=== PATIENT | female | born 1990 | race African-American/Black ===

== ENCOUNTER 2020-06-19 20:27 | Inpatient (IN) | payer OTHER ==
[2020-06-19] MEDS ORDERED: Nalbuphine 10 MG/1 ML Vial IVPUSH PRN (20:42)
[2020-06-19] MEDS ORDERED: Water For Irrigation,Sterile 1,000 ML Container IRR PRN (20:42)
[2020-06-19] MEDS ORDERED: Ondansetron 4 MG/2 ML SDV IVPUSH PRN (20:42)
[2020-06-19] MEDS ORDERED: Misoprostol 200 MCG Tab PO PRN (20:42)
[2020-06-19] MEDS ORDERED: Tranexamic Acid 1,000 MG in Sodium Chloride 0.9% 100 ML IV PRN (20:42)
[2020-06-19] MEDS ORDERED: Methylergonovine 0.2 MG/1 ML Amp IM PRN (20:42)
[2020-06-19] MEDS ORDERED: Sodium Chloride 0.9% 10 ML SDV IV PRN (20:42)
[2020-06-19] MEDS ORDERED: Misoprostol 25 MCG (1/4 of 100 MCG) Tab VAG PRN ×2 (20:42)
[2020-06-19] MEDS ORDERED: Carboprost Tromethamine 250 MCG/1 ML Amp IM PRN (20:42)
[2020-06-19] MEDS ORDERED: Lidocaine 1% 50 ML MDV INJECT PRN (20:42)
[2020-06-19] MEDS ORDERED: Butorphanol 1 MG/ML SDV IVPUSH PRN (20:42)
[2020-06-19] MEDS ORDERED: Terbutaline 1 MG/ML SDV SUBCUT PRN (20:42)
[2020-06-19] MEDS ORDERED: Sodium Chloride 0.9% 2.5 ML Syringe FLUSH PRN (20:42)
[2020-06-19] MEDS ORDERED: Sodium Chloride 0.9% 10 ML Syringe FLUSH PRN (20:42)
[2020-06-19] MEDS ORDERED: Oxytocin/0.9 % Sodium Chloride 30 UNIT/500 ML BAG IV SCH ×2 (20:45)
[2020-06-20] MEDS: Lactated Ringers 1,000 ML IV SCH ×3 (08:30→10:16)
[2020-06-20] MEDS ORDERED: fentaNYL 100 MCG/2 ML SDV ONE (08:58)
[2020-06-20] MEDS ORDERED: Ropivacaine HCl/PF 100 ML ONE (08:58)
--- NOTE | 2020-06-20 09:07 | PCM.PREANE ---
Preanesthetic Assessment - Procedure Proposed Procedure: Continuous labor epidural for active labor. - Anesthesia/Transfusion/Family Hx Anesthesia History: Prior Anesthesia Without Reaction (Previous epidural, hernia repair, both without anesthesia complications) Family History of Anesthesia Reaction: No Transfusion History: No Prior Transfusion(s) Additional History: Gestational diabetes and gestational HTN with this . Both well- controlled. - Review of Systems General: No Symptoms Pulmonary: No Symptoms Cardiovascular: No Symptoms Gastrointestinal: No Symptoms Neurological: No Symptoms Other: Reports: None - Physical Assessment NPO Status Date: 06/19/20 (NPO for food since yest., clear liquids okay.) NPO Status Time: 18:00 Height: 1.6 m Weight: 92.986 kg ASA Class: 2 Mental Status: Alert & Oriented x3 Airway Class: Mallampati = 3 Dentition: Reports: Normal Dentition Thyro-Mental Finger Breadths: 4 Mouth Opening Finger Breadths: 3 ROM/Head Extension: Full Lungs: Normal Respiratory Effort Cardiovascular: Regular Rate, Regular Rhythm - Lab Values: Laboratory Last Values WBC 10.35 K/uL (4.0-11.0) 06/19/20 20:55 RBC 4.25 M/uL (4.30-5.90) L 06/19/20 20:55 Hgb 11.4 g/dL (12.0-16.0) L 06/19/20 20:55 Hct 34.7 % (36.0-46.0) L 06/19/20 20:55 MCV 81.6 fL (80.0-98.0) 06/19/20 20:55 MCH 26.8 pg (27.0-32.0) L 06/19/20 20:55 MCHC 32.9 g/dL (31.0-37.0) 06/19/20 20:55 RDW Std Deviation 47.5 fl (28.0-62.0) 06/19/20 20:55 RDW Coeff of Roberto Carlos 16 % (11.0-15.0) H 06/19/20 20:55 Plt Count 283 K/uL (150-400) 06/19/20 20:55 MPV 10.80 fL (7.40-12.00) 06/19/20 20:55 Nucleated RBC % 0.0 /100WBC 06/19/20 20:55 Nucleated RBCs # 0 K/uL 06/19/20 20:55 POC Glucose 88 mg/dL (70-99) 06/20/20 05:33 Blood Type O POSITIVE 06/19/20 20:55 Antibody Screen NEGATIVE 06/19/20 20:55 - Allergies Allergies/Adverse Reactions: Allergies Allergy/AdvReac Type Severity Reaction Status Date / Time No Known Allergies Allergy Verified 06/20/20 08:40 - Acknowledgements Anesthesia Type Planned: Epidural Pt an Appropriate Candidate for the Planned Anesthesia: Yes Alternatives and Risks of Anesthesia Discussed w Pt/Guardian: Yes Pt/Guardian Understands and Agrees with Anesthesia Plan: Yes Additional Comments: Discussed epidural risks, benefits, procedure, and alternatives with patient (S.O. bedside). All questions answered and concerns addressed. Consent signed with RN witness. PreAnesthesia Questionnaire HEENT History: Reports: None QUALITY ASSURANCE LAB TECHNICIAN History: Reports: , Spontaneous Endocrine/Metabolic History: Reports: Diabetes, Gestational Dermatologic History: Reports: Eczema - Past Surgical History GI Surgical History: Reports: Hernia Repair/Other Other GI Surgeries/Procedures: umbilical hernai repair @ 8 yr old - SUBSTANCE USE Tobacco Use Status *Q: Never Tobacco User Second Hand Smoke Exposure: No Recreational Drug Use History: No - CURRENT (IN HOUSE) MEDS Current Meds: Current Medications Butorphanol Tartrate (Butorphanol 1 Mg/Ml Sdv) 1 mg IVPUSH Q1H PRN PRN Reason: Pain Carboprost Tromethamine (Carboprost Tromethamine 250 Mcg/1 Ml Amp) 250 mcg IM ASDIRECTED PRN PRN Reason: Post Hemorrhage Oxytocin/Sodium Chloride (Oxytocin 30 Unit/500 Ml-Ns) 30 unit in 500 mls @ 999 mls/hr IV TITRATE JANNETH Tranexamic Acid 1,000 mg/ (Sodium Chloride) 110 mls @ 660 mls/hr IV ONETIME PRN PRN Reason: Bleeding Oxytocin/Sodium Chloride (Oxytocin 30 Unit/500 Ml-Ns) 30 unit in 500 mls @ 2 mls/hr IV TITRATE JANNETH; Protocol Lactated Ringer's (Ringers, Lactated) 1,000 mls @ 150 mls/hr IV ASDIRECTED JANNETH Last Admin: 06/20/20 08:51 Dose: 999 mls/hr Documented by: Lidocaine HCl (Lidocaine 1% 50 Ml Mdv) 50 ml INJECT ONETIME PRN PRN Reason: Laceration repair Methylergonovine Maleate (Methylergonovine 0.2 Mg/1 Ml Amp) 0.2 mg IM ASDIRECTED PRN PRN Reason: Post Hemorrhage Misoprostol (Misoprostol 200 Mcg Tab) 200 mcg PO ONETIME PRN PRN Reason: Post Hemorrhage Misoprostol (Misoprostol 25 Mcg (1/4 Of 100 Mcg) Tab) 25 mcg VAG ONETIME PRN PRN Reason: Cervical Ripening Last Admin: 06/19/20 22:14 Dose: 25 mcg Documented by: Misoprostol (Misoprostol 25 Mcg (1/4 Of 100 Mcg) Tab) 25 mcg VAG Q4H PRN PRN Reason: Cervical Ripening Nalbuphine HCl (Nalbuphine 10 Mg/1 Ml Vial) 10 mg IVPUSH Q1H PRN PRN Reason: Pain (severe 7-10) Ondansetron HCl (Ondansetron 4 Mg/2 Ml Sdv) 4 mg IVPUSH Q6H PRN PRN Reason: Nausea/Vomiting Sodium Chloride (Sodium Chloride 0.9% 10 Ml Syringe) 10 ml FLUSH ASDIRECTED PRN PRN Reason: Keep Vein Open Sodium Chloride (Sodium Chloride 0.9% 2.5 Ml Syringe) 2.5 ml FLUSH ASDIRECTED PRN PRN Reason: Keep Vein Open Sodium Chloride (Sodium Chloride 0.9% 10 Ml Sdv) 10 ml IV ASDIRECTED PRN PRN Reason: IV Use Sterile Water (Water For Irrigation,Sterile 1,000 Ml Container) 1,000 ml IRR ASDIRECTED PRN PRN Reason: delivery Terbutaline Sulfate (Terbutaline 1 Mg/Ml Sdv) 0.25 mg SUBCUT ASDIRECTED PRN PRN Reason: Tacysystole
--- NOTE | 2020-06-20 09:58 | PCM.SN.2 ---
- Free Text/Narrative Note: Anesthesia time [id number] GEM procedure note 09- Bedside with patient and S.O. Discussed risks, benefits, alternatives, and procedure for epidural. All questions answered and concerns addressed. H & P completed, labs reviewed. 904- Consent signed with RN witness. 905- Sitting position. ASA monitors on. See RN EMR charting for VS throughout. [id number] completed. 912- Hat for provider and pt, sterile gloves, Sterile prep. with chlorhexidine, sterile plastic drape. 15- Lido 1% for localization 09- First attempt successful at L 3-4 level, JAMAAL with saline at 7.5 cm. No paresthesias. Catheter threaded without resistance to 13 cm. 920- Negative to aspiration for both heme and CSF. Negative test dose (3ml 1.5%lido with 1:200,000 epi.). 921- Sterile occlusive dressing placed, cloth tape to secure. 34- Clinician bolus of remaining 2ml 1.5% lido with epi, and 5 ml 0.2% ropiv. c/ 2 mcg/ml fentanyl. 34- epidural infusion started (0.2% ropivicaine c/ 2 mcg/ml fentanyl) at 8 ml/hr with IMAGING AIDE option of 4ml every 10 min with an hourly max. of 36 ml. Pt educated regarding IMAGING AIDE use. 948- pt reassessed. VSS. T9 level achieved. Pt reports satisfactory pain control. SBP 94, pt nauseous just briefly. FHT stable. Discussed with RN to notify OPTHALMIC TECH if pt becomes symptomatic again, if FHT become unstable, or if BP does not trend upwards. Bolus of final 500ml of 2nd liter of fluid infusing.
[2020-06-20] MEDS ORDERED: Phenylephrine/Normal Saline 100 MCG/ML 10 ML Syringe IVPUSH PRN (10:19)
--- NOTE | 2020-06-20 10:31 | PCM.SN.2 ---
- Free Text/Narrative Note: Anesthesia time [id number] 1010- Entered room to reassess BP and epidural level. Pt states she is comfortable and not nauseous, but SBP is 76. 1011- RN notified 1012- 200 mcg phenylephrine given IV by TELEPHONE OPERATOR RECEPTIONIST. Epidural rate decreased from 8ml/hr to 6ml/hr. 1015- SBP 130's, HR stable. 1024- Pt remains comfortable with adequate pain control, VSS. PRN order written for Phenylephrine 100mcg Q5min PRN (see order for details). Discussed with RN.
[2020-06-20] MEDS ORDERED: Ibuprofen 400 MG Tab PO PRN (17:13)
[2020-06-20] MEDS ORDERED: Benzocaine/Menthol 20%-0.5% Spray 78 GM Cannister TOP PRN (17:13)
[2020-06-20] MEDS ORDERED: Docusate Sodium 100 MG Cap PO PRN (17:13)
[2020-06-20] MEDS ORDERED: Lanolin 100% Cream 7 GM Tube TOP PRN (17:13)
[2020-06-20] MEDS ORDERED: Witch Hazel Medicated Pads 40/Jar TOP PRN (17:13)
[2020-06-20] MEDS ORDERED: oxyCODONE 5 MG Tab PO PRN (17:13)
[2020-06-20] MEDS ORDERED: Acetaminophen 500 MG Tab PO PRN (17:13)
[2020-06-20] MEDS ORDERED: Methylergonovine 0.2 MG/1 ML Amp IM PRN (17:13)
[2020-06-20] MEDS ORDERED: Bisacodyl 10 MG Supp RECTAL PRN (17:13)
--- NOTE | 2020-06-20 17:21 | PCM.DEL ---
L & D Note - General Info Date of Service: 06/20/20 Mother's Due Date: 07/03/20 (By LMP c/w 1st trimester US) - Delivery Note Labor: Induced by Oxytocin Cervical Ripening Method: Misoprostil Delivery Outcome: Livebirth Delivery Method: Spontaneous Vaginal Delivery-Single Presentation: Right Occiput Anterior (HOLLAND) Nuchal Cord: None Anesthesia Type: Epidural Amniotic Fluid Description: Clear Episiotomy Type: None Laceration: None Placenta: Intact, Spontaneous Cord: 3 Vessels Estimated Blood Loss: 250 Resuscitation Needed: No [place]: Bulb Syringe Score 1 min: 8 Score 5 min: 9 Delivery Comments (Free Text/Narrative):: Dictation #[id number] - General Info Date of Service: 06/20/20 - Patient Data Weight - Most Recent: 205 lb Lab Results Last 24 Hours: Laboratory Results - last 24 hr 06/19/20 06/19/20 06/19/20 Range/Units 20:55 20:55 23:17 WBC 10.35 (4.0-11.0) K/uL RBC 4.25 L (4.30-5.90) M/uL Hgb 11.4 L (12.0-16.0) g/dL Hct 34.7 L (36.0-46.0) % MCV 81.6 (80.0-98.0) fL MCH 26.8 L (27.0-32.0) pg MCHC 32.9 (31.0-37.0) g/dL RDW Std Deviation 47.5 (28.0-62.0) fl RDW Coeff of Roberto Carlos 16 H (11.0-15.0) % Plt Count 283 (150-400) K/uL MPV 10.80 (7.40-12.00) fL Nucleated RBC % 0.0 /100WBC Nucleated RBCs # 0 K/uL POC Glucose 78 (70-99) mg/dL Blood Type O POSITIVE Antibody Screen NEGATIVE 06/20/20 06/20/20 06/20/20 Range/Units 05:33 09:40 15:06 WBC (4.0-11.0) K/uL RBC (4.30-5.90) M/uL Hgb (12.0-16.0) g/dL Hct (36.0-46.0) % MCV (80.0-98.0) fL MCH (27.0-32.0) pg MCHC (31.0-37.0) g/dL RDW Std Deviation (28.0-62.0) fl RDW Coeff of Roberto Carlos (11.0-15.0) % Plt Count (150-400) K/uL MPV (7.40-12.00) fL Nucleated RBC % /100WBC Nucleated RBCs # K/uL POC Glucose 88 82 75 (70-99) mg/dL Blood Type Antibody Screen Med Orders - Current: Current Medications Butorphanol Tartrate (Butorphanol 1 Mg/Ml Sdv) 1 mg IVPUSH Q1H PRN PRN Reason: Pain Carboprost Tromethamine (Carboprost Tromethamine 250 Mcg/1 Ml Amp) 250 mcg IM ASDIRECTED PRN PRN Reason: Post Hemorrhage Oxytocin/Sodium Chloride (Oxytocin 30 Unit/500 Ml-Ns) 30 unit in 500 mls @ 999 mls/hr IV TITRATE JANNETH Tranexamic Acid 1,000 mg/ (Sodium Chloride) 110 mls @ 660 mls/hr IV ONETIME PRN PRN Reason: Bleeding Oxytocin/Sodium Chloride (Oxytocin 30 Unit/500 Ml-Ns) 30 unit in 500 mls @ 2 mls/hr IV TITRATE JANNETH; Protocol Last Titration: 06/20/20 14:35 Dose: 6 munits/min, 6 mls/hr Documented by: Lactated Ringer's (Ringers, Lactated) 1,000 mls @ 150 mls/hr IV ASDIRECTED JANNETH Last Admin: 06/20/20 10:16 Dose: 999 mls/hr Documented by: Lidocaine HCl (Lidocaine 1% 50 Ml Mdv) 50 ml INJECT ONETIME PRN PRN Reason: Laceration repair Methylergonovine Maleate (Methylergonovine 0.2 Mg/1 Ml Amp) 0.2 mg IM ASDIRECTED PRN PRN Reason: Post Hemorrhage Misoprostol (Misoprostol 200 Mcg Tab) 200 mcg PO ONETIME PRN PRN Reason: Post Hemorrhage Misoprostol (Misoprostol 25 Mcg (1/4 Of 100 Mcg) Tab) 25 mcg VAG ONETIME PRN PRN Reason: Cervical Ripening Last Admin: 06/19/20 22:14 Dose: 25 mcg Documented by: Misoprostol (Misoprostol 25 Mcg (1/4 Of 100 Mcg) Tab) 25 mcg VAG Q4H PRN PRN Reason: Cervical Ripening Nalbuphine HCl (Nalbuphine 10 Mg/1 Ml Vial) 10 mg IVPUSH Q1H PRN PRN Reason: Pain (severe 7-10) Ondansetron HCl (Ondansetron 4 Mg/2 Ml Sdv) 4 mg IVPUSH Q6H PRN PRN Reason: Nausea/Vomiting Phenylephrine HCl (Phenylephrine/Normal Saline 100 Mcg/Ml 10 Ml Syringe) 0.1 mg IVPUSH ONETIME PRN PRN Reason: Hypotension Sodium Chloride (Sodium Chloride 0.9% 10 Ml Syringe) 10 ml FLUSH ASDIRECTED PRN PRN Reason: Keep Vein Open Sodium Chloride (Sodium Chloride 0.9% 2.5 Ml Syringe) 2.5 ml FLUSH ASDIRECTED PRN PRN Reason: Keep Vein Open Sodium Chloride (Sodium Chloride 0.9% 10 Ml Sdv) 10 ml IV ASDIRECTED PRN PRN Reason: IV Use Sterile Water (Water For Irrigation,Sterile 1,000 Ml Container) 1,000 ml IRR ASDIRECTED PRN PRN Reason: delivery Terbutaline Sulfate (Terbutaline 1 Mg/Ml Sdv) 0.25 mg SUBCUT ASDIRECTED PRN PRN Reason: Tacysystole Discontinued Medications Fentanyl (Fentanyl 100 Mcg/2 Ml Sdv) Confirm Administered Dose 200 mcg .ROUTE .STK-MED ONE Stop: 06/20/20 08:59 Last Admin: 06/20/20 14:25 Dose: Not Given Documented by: Ropivacaine (Naropin 0.2%) Confirm Administered Dose 100 mls @ as directed .ROUTE .STK-MED ONE Stop: 06/20/20 08:59 Last Admin: 06/20/20 14:25 Dose: Not Given Documented by: - Problem List Review Problem List Initiated/Reviewed/Updated: Yes - My Orders Last 24 Hours: My Active Orders 06/20/20 17:13 Patient Status [ADT] Routine May Shower [RC] ASDIRECTED Up ad Arely [RC] ASDIRECTED Vital Signs [RC] PER UNIT ROUTINE Acetaminophen [Tylenol Extra Strength] 1,000 mg PO Q4H PRN Acetaminophen [Tylenol Extra Strength] 500 mg PO Q4H PRN Benzocaine/Menthol [Dermoplast Pain Relief 20%-0.5% [place]] 78 gm TOP ASDIRECTED PRN Docusate Sodium [Colace] 100 mg PO BID PRN Ibuprofen [Motrin] 400 mg PO Q4H PRN Ibuprofen [Motrin] 800 mg PO Q6H PRN Lanolin [Lansinoh HPA] See Dose Instructions TOP ASDIRECTED PRN Methylergonovine [Methergine] 0.2 mg IM ONETIME PRN bisacodyL [Dulcolax] 10 mg RECTAL ONETIME PRN oxyCODONE 5 mg PO Q2H PRN witch Dung [Tucks] 1 pad TOP ASDIRECTED PRN Assess Lochia [WOMSER] Per Unit Routine Assess Uterine Involution [WOMSER] Per Unit Routine Peripheral IV Discontinue [OM.PC] Routine 06/21/20 05:11 HEMOGLOBIN/HEMATOCRIT,HH [HEME] Timed 06/21/20 06:00 GLUCOSE FASTING [CHEM] Routine - Assessment Assessment:: 30 year old status post spontaneous vaginal delivery - Plan Plan:: Routine cares * Rh positive, rubella immune, GBS negative * Encourage ambulation and fluid intake when able * PO pain medications ordered * Regular diet as tolerated * , nursing assistance PRN GDMA1 * Fasting glucose ordered for the morning Chronic hypertension * Asymptomatic * BPs normotensive during labor/delivery * Will continue to monitor closely Dispo: stable. Admit to room.
[2020-06-20] MEDS: Acetaminophen 500 MG Tab PO PRN (19:50)
[2020-06-20] MEDS: Ibuprofen 800 MG Tab PO PRN (19:51)
--- NOTE | 2020-06-20 23:36 | OR ---
SURGEON: ESTRELLITA MANCILLA MD DATE OF PROCEDURE: 06/20/2020 PREOPERATIVE DIAGNOSES: 1. Term intrauterine at 38 weeks and 1 day. 2. Gestational diabetes, diet controlled. 3. Chronic hypertension. 4. Maternal obesity. POSTOPERATIVE DIAGNOSES: 1. Term intrauterine at 38 weeks and 1 day. 2. Gestational diabetes, diet controlled. 3. Chronic hypertension. 4. Maternal obesity. PROCEDURE: Spontaneous vaginal delivery. PRIMARY SURGEON: Estrellita Mancilla MD ANESTHESIA: Epidural. COMPLICATIONS: None known. ESTIMATED BLOOD LOSS: 250 mL. INDICATIONS: A 30-year-old 3, para 1-0-1-1 at 38 weeks and 1 day gestation, presented to Labor and Delivery on the evening of 06/19/2020 for induction of labor due to history of gestational diabetes, diet controlled, and chronic hypertension. FINDINGS: Normal-appearing female infant, cephalic presentation, clear amniotic fluid. score 8 and 9. Weight 3870 g. Intact perineum. PROCEDURE IN DETAIL: Upon arrival to Labor and Delivery, the patient was admitted for induction and received vaginal Cytotec for cervical ripening. On the morning of 06/20/2020, the patient was noted to be 4 cm dilated, and artificial rupture of membranes was carried out by Dr. Dennis. Clear fluid was noted. Shortly thereafter, the patient received an epidural. Labor was then augmented with Pitocin and progressed spontaneously. At approximately 1630, the patient was noted to be completely dilated and at +2 station, and decision was made to proceed with pushing efforts. The patient pushed with good efforts and delivered 's head at 1702, followed shortly thereafter by the shoulders and the rest of the body. After approximately 60 seconds, the cord was clamped and cut and the infant was handed off to the awaiting mother and nursing staff. Arterial, venous, and cord blood gases were then obtained. The placenta delivered spontaneously shortly thereafter. Inspection of the perineum was then performed and no lacerations were noted. EBL 250 mL. score 8 and 9, weight 3870 g. Both mother and infant are recovering in the room. ELISEO / SONI /[id number] RADHA
[2020-06-21] MEDS: Acetaminophen 500 MG Tab PO PRN (04:49)
--- NOTE | 2020-06-21 08:33 | PCM.PNPP ---
- General Info Date of Service: 06/21/20 Subjective Update: baby during rounds, going well. Lochia decreasing. Pain well controlled. Ambulating and voiding without difficulty. Tolerating regular diet. - General Info Date of Service: 06/21/20 - Patient Data Vital Signs - Most Recent: Last Vital Signs Temp 97.2 F 06/21/20 05:31 Pulse 89 06/21/20 05:31 Resp 16 06/21/20 05:31 BP 144/90 H 06/21/20 05:31 Pulse Ox 98 06/21/20 05:31 Weight - Most Recent: 205 lb I&O - Last 24 Hours: Intake & Output 06/20/20 06/21/20 06/21/20 22:59 06:59 14:59 Output Total 550 Balance -550 Lab Results - Last 24 Hours: Laboratory Results - last 24 hr 06/20/20 06/20/20 06/20/20 Range/Units 09:40 15:06 17:02 Hgb (12.0-16.0) g/dL Hct (36.0-46.0) % Cord ABG pH 7.186 (7.18-7.38) Cord ABG Base Excess -7 (-10--2) Cord VBG pH 7.299 (7.25-7.45) Cord VBG Base Excess -6 (-10--2) POC Glucose 82 75 (70-99) mg/dL Fasting Glucose (74-106) mg/dL 06/21/20 06/21/20 Range/Units 05:55 05:55 Hgb 9.9 L (12.0-16.0) g/dL Hct 30.5 L (36.0-46.0) % Cord ABG pH (7.18-7.38) Cord ABG Base Excess (-10--2) Cord VBG pH (7.25-7.45) Cord VBG Base Excess (-10--2) POC Glucose (70-99) mg/dL Fasting Glucose 89 (74-106) mg/dL Med Orders - Current: Current Medications Acetaminophen (Acetaminophen 500 Mg Tab) 500 mg PO Q4H PRN PRN Reason: Pain Acetaminophen (Acetaminophen 500 Mg Tab) 1,000 mg PO Q4H PRN PRN Reason: Pain Last Admin: 06/21/20 04:49 Dose: 1,000 mg Documented by: Benzocaine/Menthol (Benzocaine/Menthol 20%-0.5% [place] 78 Gm Cannister) 78 gm TOP ASDIRECTED PRN PRN Reason: Perineal Comfort Measure Last Admin: 06/20/20 19:54 Dose: 78 gm Documented by: Bisacodyl (Bisacodyl 10 Mg Supp) 10 mg RECTAL ONETIME PRN PRN Reason: Constipation Butorphanol Tartrate (Butorphanol 1 Mg/Ml Sdv) 1 mg IVPUSH Q1H PRN PRN Reason: Pain Carboprost Tromethamine (Carboprost Tromethamine 250 Mcg/1 Ml Amp) 250 mcg IM ASDIRECTED PRN PRN Reason: Post Hemorrhage Docusate Sodium (Docusate Sodium 100 Mg Cap) 100 mg PO BID PRN PRN Reason: Constipation Last Admin: 06/20/20 19:48 Dose: 100 mg Documented by: Emollient Ointment (Lanolin 100% Cream 7 Gm Tube) 0 gm TOP ASDIRECTED PRN PRN Reason: Sore Nipples Last Admin: 06/21/20 04:50 Dose: 7 gm Documented by: Oxytocin/Sodium Chloride (Oxytocin 30 Unit/500 Ml-Ns) 30 unit in 500 mls @ 999 mls/hr IV TITRATE JANNETH Tranexamic Acid 1,000 mg/ (Sodium Chloride) 110 mls @ 660 mls/hr IV ONETIME PRN PRN Reason: Bleeding Oxytocin/Sodium Chloride (Oxytocin 30 Unit/500 Ml-Ns) 30 unit in 500 mls @ 2 mls/hr IV TITRATE JANNETH; Protocol Last Titration: 06/20/20 14:35 Dose: 6 munits/min, 6 mls/hr Documented by: Lactated Ringer's (Ringers, Lactated) 1,000 mls @ 150 mls/hr IV ASDIRECTED JANNETH Last Admin: 06/20/20 10:16 Dose: 999 mls/hr Documented by: Ibuprofen (Ibuprofen 400 Mg Tab) 400 mg PO Q4H PRN PRN Reason: Pain Ibuprofen (Ibuprofen 800 Mg Tab) 800 mg PO Q6H PRN PRN Reason: Pain Last Admin: 06/20/20 19:51 Dose: 800 mg Documented by: Lidocaine HCl (Lidocaine 1% 50 Ml Mdv) 50 ml INJECT ONETIME PRN PRN Reason: Laceration repair Methylergonovine Maleate (Methylergonovine 0.2 Mg/1 Ml Amp) 0.2 mg IM ASDIRECTED PRN PRN Reason: Post Hemorrhage Methylergonovine Maleate (Methylergonovine 0.2 Mg/1 Ml Amp) 0.2 mg IM ONETIME PRN PRN Reason: Excessive Vaginal Bleeding Misoprostol (Misoprostol 200 Mcg Tab) 200 mcg PO ONETIME PRN PRN Reason: Post Hemorrhage Misoprostol (Misoprostol 25 Mcg (1/4 Of 100 Mcg) Tab) 25 mcg VAG ONETIME PRN PRN Reason: Cervical Ripening Last Admin: 06/19/20 22:14 Dose: 25 mcg Documented by: Misoprostol (Misoprostol 25 Mcg (1/4 Of 100 Mcg) Tab) 25 mcg VAG Q4H PRN PRN Reason: Cervical Ripening Nalbuphine HCl (Nalbuphine 10 Mg/1 Ml Vial) 10 mg IVPUSH Q1H PRN PRN Reason: Pain (severe 7-10) Ondansetron HCl (Ondansetron 4 Mg/2 Ml Sdv) 4 mg IVPUSH Q6H PRN PRN Reason: Nausea/Vomiting Oxycodone HCl (Oxycodone 5 Mg Tab) 5 mg PO Q2H PRN PRN Reason: Pain Phenylephrine HCl (Phenylephrine/Normal Saline 100 Mcg/Ml 10 Ml Syringe) 0.1 mg IVPUSH ONETIME PRN PRN Reason: Hypotension Sodium Chloride (Sodium Chloride 0.9% 10 Ml Syringe) 10 ml FLUSH ASDIRECTED PRN PRN Reason: Keep Vein Open Sodium Chloride (Sodium Chloride 0.9% 2.5 Ml Syringe) 2.5 ml FLUSH ASDIRECTED PRN PRN Reason: Keep Vein Open Sodium Chloride (Sodium Chloride 0.9% 10 Ml Sdv) 10 ml IV ASDIRECTED PRN PRN Reason: IV Use Sterile Water (Water For Irrigation,Sterile 1,000 Ml Container) 1,000 ml IRR ASDIRECTED PRN PRN Reason: delivery Terbutaline Sulfate (Terbutaline 1 Mg/Ml Sdv) 0.25 mg SUBCUT ASDIRECTED PRN PRN Reason: Tacysystole Witch Dung (Witch Dung Medicated Pads 40/Jar) 1 pad TOP ASDIRECTED PRN PRN Reason: comfort care Last Admin: 06/20/20 19:54 Dose: 1 tub Documented by: Discontinued Medications Fentanyl (Fentanyl 100 Mcg/2 Ml Sdv) Confirm Administered Dose 200 mcg .ROUTE .STK-MED ONE Stop: 06/20/20 08:59 Last Admin: 06/20/20 14:25 Dose: Not Given Documented by: Ropivacaine (Naropin 0.2%) Confirm Administered Dose 100 mls @ as directed .ROUTE .STK-MED ONE Stop: 06/20/20 08:59 Last Admin: 06/20/20 14:25 Dose: Not Given Documented by: - Interaction Infant Disposition, : in Room with Family Interaction: Holding Infant Feeding: Breastfed ; Nursed Well Support Person: - Recovery Exam Fundal Tone: Firm Fundal Level: 1 Fingerbreadths Below Umbilicus Fundal Placement: Midline Lochia Amount: None, Scant Perineum Description: Intact, Minimal Bruising/Swelling Episiotomy/Laceration: Approximated Bladder Status: Voiding - Exam General: Alert Lungs: Normal Respiratory Effort Cardiovascular: Regular Rate GI/Abdominal Exam: Soft, Non-Tender Extremities: Normal Range of Motion, Non-Tender, Pedal Edema (1+) Skin: Warm, Dry, Intact - Problem List Review Problem List Initiated/Reviewed/Updated: Yes - My Orders Last 24 Hours: My Active Orders 06/20/20 17:13 Patient Status [ADT] Routine May Shower [RC] ASDIRECTED Vital Signs [RC] PER UNIT ROUTINE Acetaminophen [Tylenol Extra Strength] 1,000 mg PO Q4H PRN Acetaminophen [Tylenol Extra Strength] 500 mg PO Q4H PRN Benzocaine/Menthol [Dermoplast Pain Relief 20%-0.5% [place]] 78 gm TOP ASDIRECTED PRN Docusate Sodium [Colace] 100 mg PO BID PRN Ibuprofen [Motrin] 400 mg PO Q4H PRN Ibuprofen [Motrin] 800 mg PO Q6H PRN Lanolin [Lansinoh HPA] See Dose Instructions TOP ASDIRECTED PRN Methylergonovine [Methergine] 0.2 mg IM ONETIME PRN bisacodyL [Dulcolax] 10 mg RECTAL ONETIME PRN oxyCODONE 5 mg PO Q2H PRN witch Dung [Tucks] 1 pad TOP ASDIRECTED PRN Assess Lochia [WOMSER] Per Unit Routine Assess Uterine Involution [WOMSER] Per Unit Routine Peripheral IV Discontinue [OM.PC] Routine - Assessment Assessment:: 30 year old PPD 1 status post spontaneous vaginal delivery - Plan Plan:: Routine cares * Rh positive, rubella immune, GBS negative * Encourage ambulation and fluid intake when able * PO pain medications ordered * Regular diet as tolerated * , nursing assistance PRN GDMA1 * Fasting glucose ordered for the morning Chronic hypertension * Asymptomatic * BPs normotensive during labor/delivery, mild range this AM * Will continue to monitor closely Anemia * Hgb 11.4 > 9.9 this AM * Asymptomatic * PO iron BID with meals ordered. Dispo: stable. Anticipate discharge 24-48hrs post delivery pending patient status. Will continue to monitor BPs this morning.
[2020-06-21] MEDS: Ibuprofen 800 MG Tab PO PRN ×2 (08:50→21:11)
[2020-06-21 11:31] LABS: BLOOD UREA NITROGEN,BUN 7 mg/dL (7.0-18.0); CARBON DIOXIDE,CO2 23.9 mmol/L (21.0-32.0); CHLORIDE,CL 107 mmol/L (98-107); GLUCOSE RANDOM 79 mg/dL (74-106); POTASSIUM,K 4.1 mmol/L (3.5-5.1); SODIUM,NA 140 mmol/L (136-145)
[2020-06-21] MEDS: Labetalol 100 MG Tab PO SCH ×2 (14:03→21:06)
[2020-06-21] MEDS: Ferrous Sulfate 325 MG Tab PO SCH (21:45)
--- NOTE | 2020-06-22 07:01 | PCM.PNPP ---
- General Info Date of Service: 06/22/20 Admission Dx/Problem (Free Text): Subjective Update: Eating breakfast during rounds. Lochia decreasing. Pain well controlled. Ambulating and voiding without difficulty. Tolerating regular diet. going well. Denies headaches, visual changes or RUQ pain. - General Info Date of Service: 06/22/20 - Patient Data Vital Signs - Most Recent: Last Vital Signs Temp 96.8 F L 06/22/20 05:00 Pulse 81 06/22/20 05:00 Resp 16 06/22/20 05:00 BP 137/83 06/22/20 05:00 Pulse Ox 97 06/22/20 05:00 Weight - Most Recent: 205 lb Lab Results - Last 24 Hours: Laboratory Results - last 24 hr 06/21/20 Range/Units 10:45 Sodium 140 (136-145) mmol/L Potassium 4.1 (3.5-5.1) mmol/L Chloride 107 (98-107) mmol/L Carbon Dioxide 23.9 (21.0-32.0) mmol/L BUN 7 (7.0-18.0) mg/dL Creatinine 0.7 (0.6-1.0) mg/dL Est Cr Clr Drug Dosing 97.21 mL/min Estimated GFR (MDRD) > 60.0 ml/min Glucose 79 (74-106) mg/dL Uric Acid 4.8 (2.6-7.2) mg/dL Calcium 8.4 L (8.5-10.1) mg/dL Total Bilirubin 0.2 (0.2-1.0) mg/dL AST 24 (15-37) IU/L ALT 18 (14-63) IU/L Alkaline Phosphatase 111 (46-116) U/L Lactate Dehydrogenase 267 H (81-234) U/L Total Protein 6.2 L (6.4-8.2) g/dL Albumin 2.1 L (3.4-5.0) g/dL Globulin 4.1 H (2.6-4.0) g/dL Albumin/Globulin Ratio 0.5 L (0.9-1.6) Med Orders - Current: Current Medications Acetaminophen (Acetaminophen 500 Mg Tab) 500 mg PO Q4H PRN PRN Reason: Pain Acetaminophen (Acetaminophen 500 Mg Tab) 1,000 mg PO Q4H PRN PRN Reason: Pain Last Admin: 06/21/20 04:49 Dose: 1,000 mg Documented by: Benzocaine/Menthol (Benzocaine/Menthol 20%-0.5% [place] 78 Gm Cannister) 78 gm TOP ASDIRECTED PRN PRN Reason: Perineal Comfort Measure Last Admin: 06/20/20 19:54 Dose: 78 gm Documented by: Bisacodyl (Bisacodyl 10 Mg Supp) 10 mg RECTAL ONETIME PRN PRN Reason: Constipation Butorphanol Tartrate (Butorphanol 1 Mg/Ml Sdv) 1 mg IVPUSH Q1H PRN PRN Reason: Pain Carboprost Tromethamine (Carboprost Tromethamine 250 Mcg/1 Ml Amp) 250 mcg IM A SDIRECTED PRN PRN Reason: Post Hemorrhage Docusate Sodium (Docusate Sodium 100 Mg Cap) 100 mg PO BID PRN PRN Reason: Constipation Last Admin: 06/20/20 19:48 Dose: 100 mg Documented by: Emollient Ointment (Lanolin 100% Cream 7 Gm Tube) 0 gm TOP ASDIRECTED PRN PRN Reason: Sore Nipples Last Admin: 06/21/20 04:50 Dose: 7 gm Documented by: Ferrous Sulfate (Ferrous Sulfate 325 Mg Tab) 325 mg PO BIDMEALS JANNEHT Last Admin: 06/21/20 21:45 Dose: 325 mg Documented by: Oxytocin/Sodium Chloride (Oxytocin 30 Unit/500 Ml-Ns) 30 unit in 500 mls @ 999 mls/hr IV TITRATE JANNETH Tranexamic Acid 1,000 mg/ (Sodium Chloride) 110 mls @ 660 mls/hr IV ONETIME PRN PRN Reason: Bleeding Oxytocin/Sodium Chloride (Oxytocin 30 Unit/500 Ml-Ns) 30 unit in 500 mls @ 2 mls/hr IV TITRATE JANNETH; Protocol Last Titration: 06/20/20 14:35 Dose: 6 munits/min, 6 mls/hr Documented by: Lactated Ringer's (Ringers, Lactated) 1,000 mls @ 150 mls/hr IV ASDIRECTED JANNETH Last Admin: 06/20/20 10:16 Dose: 999 mls/hr Documented by: Ibuprofen (Ibuprofen 400 Mg Tab) 400 mg PO Q4H PRN PRN Reason: Pain Ibuprofen (Ibuprofen 800 Mg Tab) 800 mg PO Q6H PRN PRN Reason: Pain Last Admin: 06/21/20 21:11 Dose: 800 mg Documented by: Labetalol HCl (Labetalol 100 Mg Tab) 200 mg PO BID JANNETH Last Admin: 06/21/20 21:06 Dose: 200 mg Documented by: Lidocaine HCl (Lidocaine 1% 50 Ml Mdv) 50 ml INJECT ONETIME PRN PRN Reason: Laceration repair Methylergonovine Maleate (Methylergonovine 0.2 Mg/1 Ml Amp) 0.2 mg IM ASDIRECTED PRN PRN Reason: Post Hemorrhage Methylergonovine Maleate (Methylergonovine 0.2 Mg/1 Ml Amp) 0.2 mg IM ONETIME PRN PRN Reason: Excessive Vaginal Bleeding Misoprostol (Misoprostol 200 Mcg Tab) 200 mcg PO ONETIME PRN PRN Reason: Post Hemorrhage Misoprostol (Misoprostol 25 Mcg (1/4 Of 100 Mcg) Tab) 25 mcg VAG ONETIME PRN PRN Reason: Cervical Ripening Last Admin: 06/19/20 22:14 Dose: 25 mcg Documented by: Misoprostol (Misoprostol 25 Mcg (1/4 Of 100 Mcg) Tab) 25 mcg VAG Q4H PRN PRN Reason: Cervical Ripening Nalbuphine HCl (Nalbuphine 10 Mg/1 Ml Vial) 10 mg IVPUSH Q1H PRN PRN Reason: Pain (severe 7-10) Ondansetron HCl (Ondansetron 4 Mg/2 Ml Sdv) 4 mg IVPUSH Q6H PRN PRN Reason: Nausea/Vomiting Oxycodone HCl (Oxycodone 5 Mg Tab) 5 mg PO Q2H PRN PRN Reason: Pain Phenylephrine HCl (Phenylephrine/Normal Saline 100 Mcg/Ml 10 Ml Syringe) 0.1 mg IVPUSH ONETIME PRN PRN Reason: Hypotension Sodium Chloride (Sodium Chloride 0.9% 10 Ml Syringe) 10 ml FLUSH ASDIRECTED PRN PRN Reason: Keep Vein Open Sodium Chloride (Sodium Chloride 0.9% 2.5 Ml Syringe) 2.5 ml FLUSH ASDIRECTED PRN PRN Reason: Keep Vein Open Sodium Chloride (Sodium Chloride 0.9% 10 Ml Sdv) 10 ml IV ASDIRECTED PRN PRN Reason: IV Use Sterile Water (Water For Irrigation,Sterile 1,000 Ml Container) 1,000 ml IRR ASDIRECTED PRN PRN Reason: delivery Terbutaline Sulfate (Terbutaline 1 Mg/Ml Sdv) 0.25 mg SUBCUT ASDIRECTED PRN PRN Reason: Tacysystole Witch Nataly (Witch Nataly Medicated Pads 40/Jar) 1 pad TOP ASDIRECTED PRN PRN Reason: comfort care Last Admin: 06/20/20 19:54 Dose: 1 tub Documented by: Discontinued Medications Fentanyl (Fentanyl 100 Mcg/2 Ml Sdv) Confirm Administered Dose 200 mcg .ROUTE .STK-MED ONE Stop: 06/20/20 08:59 Last Admin: 06/20/20 14:25 Dose: Not Given Documented by: Ropivacaine (Naropin 0.2%) Confirm Administered Dose 100 mls @ as directed .ROUTE .STK-MED ONE Stop: 06/20/20 08:59 Last Admin: 06/20/20 14:25 Dose: Not Given Documented by: - Infant Interaction Infant Disposition, : [place] to Nursery Infant Feeding: Breastfed ; Nursed Well Support Person: - Recovery Exam Fundal Tone: Firm Fundal Level: 1 Fingerbreadths Below Umbilicus Fundal Placement: Midline Lochia Amount: Scant Lochia Color: Rubra/Red Perineum Description: Intact, Minimal Bruising/Swelling Episiotomy/Laceration: None Bladder Status: Voiding - Exam General: Alert Lungs: Normal Respiratory Effort Cardiovascular: Regular Rate GI/Abdominal Exam: Soft, Non-Tender Extremities: Non-Tender, Pedal Edema (1+) Skin: Warm, Dry, Intact Neurological: No New Focal Deficit Psy/Mental Status: Normal Mood - Problem List Review Problem List Initiated/Reviewed/Updated: Yes - My Orders Last 24 Hours: My Active Orders 06/21/20 14:00 Labetalol [Normodyne] 200 mg PO BID 06/21/20 21:31 Ferrous Sulfate 325 mg PO BIDMEALS - Assessment Assessment:: 30 year old PPD 2 status post spontaneous vaginal delivery - Plan Plan:: Routine cares * Rh positive, rubella immune, GBS negative * Encourage ambulation and fluid intake when able * PO pain medications ordered * Regular diet as tolerated * , nursing assistance PRN GDMA1 * Fasting glucose ordered for the morning Chronic hypertension * Asymptomatic * BPs elevated yesterday, Labetalol 100mg BID initiated. BPs improved. Will continue * Will continue to monitor closely Anemia * Hgb 11.4 > 9.9 this AM * Asymptomatic * PO iron BID with meals ordered. Dispo: stable. Anticipate discharge today pending patient status. Patient to return to clinic in 1 week for BP check. Reviewed discharge precautions including preeclampsia sign/symptoms, pain and bleeding expectations. Questions elicited and answered.
[2020-06-22] MEDS: Ferrous Sulfate 325 MG Tab PO SCH (08:36)
[2020-06-22] MEDS: Ibuprofen 800 MG Tab PO PRN (08:37)
[2020-06-22] MEDS: Labetalol 100 MG Tab PO SCH (08:37)
--- NOTE | 2020-06-22 09:36 | PCM48HPAN ---
Post Anesthesia Note - EVALUATION WITHIN 48HRS OF ANESTHETIC Vital Signs in Normal Range: Yes Patient Participated in Evaluation: Yes Respiratory Function Stable: Yes Airway Patent: Yes Cardiovascular Function Stable: Yes Hydration Status Stable: Yes Pain Control Satisfactory: Yes (Reports adequate pain control, 2/10 at rest.) Nausea and Vomiting Control Satisfactory: Yes (Denies nausea/vomiting, taking PO well.) Mental Status Recovered: Yes Vital Signs: Last Vital Signs Temp 36.0 C L 06/22/20 08:20 Pulse 78 06/22/20 08:37 Resp 17 06/22/20 08:20 BP 136/81 06/22/20 08:37 Pulse Ox 96 06/22/20 08:20 - COMMENTS/OBSERVATIONS Free Text/Narrative:: Ambulating well without assist, reports full return of strength and sensation to BLE.
[2020-06-22] MEDS ORDERED: Oxytocin/0.9 % Sodium Chloride 0 UNIT/0 ML BAG ONE (13:15)
== END 2020-06-22 14:20 | disposition home or self-care (01) | DRG 807 ==
LOC: MW.OBCHECK 20:27 → MW.OB 20:40 → MW.OBCHECK 20:42 → MW.OB 20:42 → OBSVTOIN 06-20 17:02 → MW.OB 06-20 20:15
PROVIDERS: ADMIT Obstetrics & Gynecology; ATTEND Obstetrics & Gynecology
PROC: 10E0XZZ Delivery of Products of Conception, External Approach (ICD-10-PCS; principal; 2020-06-20)
PROC: 10907ZC Drainage of Amniotic Fluid, Therapeutic from Products of Conception, Via Natural or Artificial Opening (ICD-10-PCS; 2020-06-20)
PROC: 3E0P7VZ Introduction of Hormone into Female Reproductive, Via Natural or Artificial Opening (ICD-10-PCS; 2020-06-20)
PROC: 3E033VJ Introduction of Other Hormone into Peripheral Vein, Percutaneous Approach (ICD-10-PCS; 2020-06-20)
PROC: 3E0R3BZ Introduction of Anesthetic Agent into Spinal Canal, Percutaneous Approach (ICD-10-PCS; 2020-06-20)
PROC: 00HU33Z Insertion of Infusion Device into Spinal Canal, Percutaneous Approach (ICD-10-PCS; 2020-06-20)
DX: O10.013 Pre-existing essential hypertension complicating pregnancy, third trimester (principal); Z37.0 Single live birth; O24.410 Gestational diabetes mellitus in pregnancy, diet controlled; O99.214 Obesity complicating childbirth; E66.9 Obesity, unspecified; Z3A.38 38 weeks gestation of pregnancy; Z86.16 Personal history of COVID-19
CPT/HCPCS: 01967; 36415; 51702; 59025; 59409; 80053; 82803; 82947; 83615; 84550; 85014; 85018; 85027; 86592; 86850; 86900; 86901; A9270-GY; J2590; J2795; J3010; J7120

== ENCOUNTER 2024-11-22 19:47 | Emergency (ER) | payer BC ==
[2024-11-22] MEDS ORDERED: Sodium Chloride 0.9% 10 ML Syringe FLUSH PRN (20:23)
[2024-11-22] MEDS ORDERED: Sodium Chloride 0.9% 2.5 ML Syringe FLUSH PRN (20:23)
[2024-11-22] MEDS: Labetalol 100 MG/20 ML MDV IVPUSH ONE (21:01)
[2024-11-22 21:13] LABS: BASOPHILS ABSOLUTE AUTO 0.04 K/uL (0.00-0.20); BASOPHILS PERCENT AUTO 0.6 % (0.0-1.0); EOSINOPHILS ABSOLUTE AUTO 0.13 K/uL (0.00-0.45); EOSINOPHILS PERCENT AUTO 2.0 % (0.0-6.0); IMMATURE GRAN ABSOLUTE AUTO 0.01 K/uL (0.00-0.05); IMMATURE GRAN PERCENT AUTO 0.2 % (0.0-0.4); LYMPHOCYTES ABSOLUTE AUTO 3.10 K/uL (1.00-4.80); LYMPHOCYTES PERCENT AUTO 47.6 % (24.0-44.0); MEAN PLATELET VOLUME 9.8 fL (9.4-12.3); MONOCYTES ABSOLUTE AUTO 0.33 K/uL (0.00-0.80); MONOCYTES PERCENT AUTO 5.1 % (0.0-8.0); NEUTROPHILS ABSOLUTE AUTO 2.90 K/uL (1.80-7.70); NEUTROPHILS PERCENT AUTO 44.5 % (41.0-71.0); NRBC ABSOLUTE 0.00 K/uL (0.00-0.02); NRBC PERCENT 0.0 /100WBC (0.0-0.2); PLATELET COUNT,PLT 310 K/uL (150-400); RED BLOOD CELL COUNT 4.91 M/uL (4.10-5.30); WHITE BLOOD CELL COUNT,WBC 6.51 K/uL (3.9-11.3)
[2024-11-22 21:45] LABS: A/G RATIO 0.9 (0.9-1.6); ALANINE AMINOTRANSFERASE,ALT 15.0 IU/L (14-63); ASPARTATE AMNIOTRANSFERASE,AST 12.0 IU/L (15-37); BILIRUBIN TOTAL 0.2 mg/dL (0.2-1.0); BLOOD UREA NITROGEN,BUN 12.0 mg/dL (7.0-18.0); CARBON DIOXIDE,CO2 28.3 mmol/L (21.0-32.0); CHLORIDE,CL 101.0 mmol/L (98-107); CREATININE 0.9 mg/dL (0.6-1.0); EST CRCL DRUG DOSING (CG) 76.06 mL/min; GLUCOSE RANDOM 97.0 mg/dL (74-106); POTASSIUM,K 3.5 mmol/L (3.5-5.1); PROTEIN TOTAL,TP 8.1 g/dL (6.4-8.2); SODIUM,NA 138.0 mmol/L (136-145)
[2024-11-22 21:46] LABS: ESTIMATED GFR 86.0 mL/min (>60)
[2024-11-22] MEDS: hydrALAZINE 20 MG/ML SDV IVPUSH ONE ×2 (21:53→22:21)
== END 2024-11-22 23:21 | disposition home or self-care (01) ==
LOC: MW.ED 19:47
DX: I10 Essential (primary) hypertension (principal); Z79.899 Other long term (current) drug therapy
CPT/HCPCS: 36415; 80053; 84703; 85025; 96374; 96375; 99284; A9270; J0360; J1920; 99283